=== PATIENT | male | born 1950 | race Two or more races ===

== ENCOUNTER → 2021-10-20 | Outpatient (CLI) | payer MEDICAID ==
[2021-10-20 15:39] LABS: Urine Bacteria NONE SEEN /hpf (None Seen); Urine Blood Negative /uL (Negative); Urine Hyaline Cast FEW /lpf (0 - 2); Urine Mucus FEW (None Seen); Urine Specific Gravity 1.031 (1.001-1.035); Urine WBC 2 /hpf (0 - 3)
== END | disposition home or self-care (01) ==
LOC: LAB 15:18
PROVIDERS: ATTEND Urology
DX: N39.0 Urinary tract infection, site not specified (principal)
CPT/HCPCS: 81001; 87086

== ENCOUNTER 2022-03-23 14:34 | Outpatient (CLI) | payer OTHER, MEDICAID ==
[~2022-03-23] VITALS: Ht 180.3 cm; Wt 102.1 kg
[2022-03-23 15:47] LABS: Basophils # (auto) 0.1 10 ^3/uL (0-0.2); Basophils % (auto) 1.4 % (0.0-2.0); Eosinophils # (auto) 0.1 10 ^3/uL (0-0.8); Eosinophils % (auto) 1.5 % (0.0-7.0); Hematocrit 49.2 % (41.0-53.0); Hemoglobin 16.5 g/dL (13.5-17.5); Lymphocytes # (auto) 1.8 10 ^3/uL (0.4-5.4); Lymphocytes % (auto) 27.7 % (10.0-50.0); Mean Corpuscular Hemoglobin 28.9 pg (28.0-32.0); Mean Corpuscular Hgb Conc. 33.6 g/dL (32.0-36.0); Monocytes # (auto) 0.3 10 ^3/uL (0-1.3); Monocytes % (auto) 5.3 % (0.0-12.0); Neutrophils # (auto) 4.2 10 ^3/uL (1.6-8.6); Neutrophils % (auto) 64.1 % (37.0-80.0); Nucleated Red Blood Cells % 0.1 %; Red Blood Cells 5.72 10^6/uL (4.5-5.90); Red Cell Distribution Width 14.2 % (11.8-14.3); White Blood Cell 6.6 10^3/uL (4.4-10.8)
[2022-03-23 15:48] LABS: Urine Bacteria NONE SEEN /hpf (None Seen); Urine Blood Negative /uL (Negative); Urine Hyaline Cast FEW /lpf (0 - 2); Urine Specific Gravity 1.011 (1.001-1.035); Urine WBC <1 /hpf (0 - 3)
[2022-03-23 15:49] LABS: INR 0.93 (0.9-1.15); Partial Thromboplastin Time 27.3 sec (24.6-33.4)
[2022-03-23 16:23] LABS: Albumin 4.1 g/dL (3.4-5.0); BUN/Creatinine Ratio 14.3; Calcium 9.5 mg/dL (8.5-10.1); Potassium 4.1 mmol/L (3.5-5.1)
[2022-03-23 16:26] LABS: Bilirubin, Total 0.4 mg/dL (0.2-1.0)
[2022-03-24] MEDS ORDERED: POTA-220 PO (16:08)
[2022-03-24] MEDS ORDERED: FENO134C PO (16:08)
[2022-03-24] MEDS ORDERED: LOSA100T33 PO (16:08)
[2022-03-24] MEDS ORDERED: FURO1TAB31 PO (16:08)
[2022-03-24] MEDS ORDERED: GABA300C10 PO (16:08)
[2022-03-24] MEDS ORDERED: SITA100T7 PO (16:08)
[2022-03-24] MEDS ORDERED: CYCL-611 PO (16:08)
[2022-03-24] MEDS ORDERED: GLIP10TA9 PO (16:08)
[2022-03-24] MEDS ORDERED: TAM04C PO (16:08)
[2022-03-24] MEDS ORDERED: OMEP-434 PO (16:08)
[2022-03-24] MEDS ORDERED: BACL20TA PO (16:08)
[2022-03-24] MEDS ORDERED: ALOG25TA OR (16:08)
[2022-03-24] MEDS ORDERED: METO-517 PO (16:08)
[2022-03-24] MEDS ORDERED: ASPI1TAB20 PO (16:08)
== END 2022-03-23 15:05 | disposition home or self-care (01) ==
LOC: LAB 14:34 → EDSTATUS 03-26 13:30
PROVIDERS: ATTEND Urology
DX: Z01.812 Encounter for preprocedural laboratory examination (principal); Z20.822 Contact with and (suspected) exposure to COVID-19; Z79.899 Other long term (current) drug therapy; N39.0 Urinary tract infection, site not specified
CPT/HCPCS: 36415; 80053; 81001; 85025; 85610; 85730; 87086; C9803; U0003

== ENCOUNTER 2022-11-22 18:39 | Emergency (ER) | payer OTHER, MEDICAID ==
[~2022-11-22] VITALS: Ht 185.4 cm; Wt 99.7 kg
[~2022-11-22 18:39] MED LIST: ALOG25TA OR; ASPI1TAB20 PO; BACL20TA PO; CYCL-611 PO; FENO134C19 PO; FURO1TAB31 PO; GABA-1250 PO; GLIP10TA9 PO; LOSA100T33 PO; METO-517 PO; OMEP-434 PO; POTA-220 PO; SITA100T7 PO; TAMS-35 PO
[2022-11-22] MEDS ORDERED: MORPHINE SULFATE INJ 2 MG/ml SYRG IM ONE (21:30)
[2022-11-22] MEDS ORDERED: ONDANSETRON ODT 4 MG TAB PO ONE (21:30)
[2022-11-22] MEDS ORDERED: ACE3T PO (21:40)
[2022-11-22 22:20] VITALS: BP 120/69; PULSE 68; RESP 18; TEMP 98.5; O2SAT 94
== END 2022-11-23 01:30 | disposition home or self-care (01) ==
LOC: ER 18:39
DX: M54.31 Sciatica, right side (principal); G89.29 Other chronic pain; M54.59 Other low back pain; I10 Essential (primary) hypertension; Z88.8 Allergy status to other drugs, medicaments and biological substances; Z79.899 Other long term (current) drug therapy; Z79.84 Long term (current) use of oral hypoglycemic drugs; Z79.82 Long term (current) use of aspirin; Z90.49 Acquired absence of other specified parts of digestive tract
CPT/HCPCS: 72100; 81002; 96372; 99283; J2270; Q0162